=== PATIENT | female | born 1975 | race Caucasian/White ===

== ENCOUNTER 2017-03-01 19:52 | Emergency (ER) | payer OTHER ==
[2017-03-01] MEDS ORDERED: SODIUM CHLORIDE 0.9% 1,000 ML IV ONE ×2 (21:05→21:10)
[2017-03-01] MEDS ORDERED: ONDANSETRON 4 MG/2 ML VIAL ONE (21:05)
[2017-03-01] MEDS ORDERED: ONDANSETRON 4 MG/2 ML VIAL IVP STA (21:10)
[2017-03-01] MEDS ORDERED: ONDANSETRON ODT 4 MG Prepack 2 TL ONE (22:24)
== END 2017-03-01 23:01 | disposition home or self-care (01) ==
DX: E86.0 Dehydration (principal); R11.2 Nausea with vomiting, unspecified; R19.7 Diarrhea, unspecified; R73.9 Hyperglycemia, unspecified; Z85.038 Personal history of other malignant neoplasm of large intestine

== ENCOUNTER 2017-03-03 09:10 | Inpatient (IN) | payer OTHER ==
[2017-03-03] MEDS ORDERED: ONDANSETRON 4 MG/2 ML VIAL IVP STA (09:16)
[2017-03-03] MEDS ORDERED: SODIUM CHLORIDE 0.9% 2,000 ML IV ONE (09:16)
[2017-03-03] MEDS ORDERED: ONDANSETRON 4 MG/2 ML VIAL ONE (09:53)
[2017-03-03] MEDS ORDERED: diazePAM INJ 5 MG/ML SYRINGE IVP STA (10:31)
[2017-03-03] MEDS ORDERED: HYDROmorphone 1 MG/ML SYRINGE IVP STA (10:31)
[2017-03-03] MEDS ORDERED: diazePAM INJ 5 MG/ML SYRINGE ONE (10:49)
[2017-03-03] MEDS ORDERED: HYDROmorphone 1 MG/ML SYRINGE ONE (10:49)
[2017-03-03] MEDS ORDERED: SODIUM CHLORIDE FLUSH 0.9% 10 ML SYRINGE IVP PRN (11:43)
[2017-03-03] MEDS ORDERED: oxyCODONE 5 MG TABLET PO PRN (11:43)
[2017-03-03] MEDS ORDERED: PROCHLORPERAZINE 10 MG/2 ML VIAL IVP PRN (11:43)
[2017-03-03] MEDS ORDERED: ONDANSETRON ODT 4 MG TABLET TL PRN (11:43)
[2017-03-03] MEDS ORDERED: ACETAMINOPHEN 325 MG TABLET PO PRN (11:43)
[2017-03-03] MEDS: SODIUM CHLORIDE 0.9% 1,000 ML IV SCH ×3 (12:45→23:32)
[2017-03-03] MEDS: SODIUM CHLORIDE FLUSH 0.9% 10 ML SYRINGE IVP SCH ×2 (12:45→14:00)
[2017-03-03] MEDS: PANTOPRAZOLE 40 MG VIAL IVP SCH ×2 (13:22→14:00)
[2017-03-03] MEDS ORDERED: A & D OINTMENT 5 GM PACKET TOP PRN (13:34)
[2017-03-03] MEDS: ONDANSETRON 4 MG/2 ML VIAL IVP PRN (14:58)
[2017-03-04] MEDS: SODIUM CHLORIDE 0.9% 1,000 ML IV SCH ×3 (04:25→19:47)
[2017-03-04] MEDS: SODIUM CHLORIDE FLUSH 0.9% 10 ML SYRINGE IVP SCH ×3 (06:36→19:49)
[2017-03-04] MEDS: PANTOPRAZOLE 40 MG VIAL IVP SCH (06:36)
[2017-03-04] MEDS ORDERED: POLYETHYLENE GLYCOL 3350 17 GM PACKET PO SCH (09:00)
[2017-03-04] MEDS ORDERED: FLU VACCINE QS 2016-17 60 MCG/0.5 ML SYRINGE IM ONE (09:00)
[2017-03-04] MEDS: ONDANSETRON 4 MG/2 ML VIAL IVP PRN (09:39)
[2017-03-04] MEDS: DIPHENOX/ATROPINE 2.5/0.025 MG TABLET PO PRN ×2 (15:48→19:46)
[2017-03-05] MEDS: ONDANSETRON 4 MG/2 ML VIAL IVP PRN (00:33)
[2017-03-05] MEDS: PANTOPRAZOLE 40 MG VIAL IVP SCH (06:28)
[2017-03-05] MEDS: SODIUM CHLORIDE 0.9% 1,000 ML IV SCH (06:28)
[2017-03-05] MEDS: SODIUM CHLORIDE FLUSH 0.9% 10 ML SYRINGE IVP SCH (06:29)
[2017-03-05] MEDS: DIPHENOX/ATROPINE 2.5/0.025 MG TABLET PO PRN (06:33)
== END 2017-03-05 10:29 | disposition home or self-care (01) | DRG 683 ==
DX: N17.9 Acute kidney failure, unspecified (principal); E87.2 Acidosis; E86.0 Dehydration; A08.4 Viral intestinal infection, unspecified; K52.9 Noninfective gastroenteritis and colitis, unspecified; Z90.49 Acquired absence of other specified parts of digestive tract; F41.9 Anxiety disorder, unspecified; G43.909 Migraine, unspecified, not intractable, without status migrainosus; R16.0 Hepatomegaly, not elsewhere classified; Z86.010 Personal history of colon polyps; Z86.03 Personal history of neoplasm of uncertain behavior; F17.210 Nicotine dependence, cigarettes, uncomplicated

== ENCOUNTER 2017-08-11 07:51 | Outpatient (CLI) | payer OTHER ==
[2017-08-11 13:22] LABS: BASOPHILS % (AUTO) 0.5 %; EOSINOPHILS # (AUTO) 0.1 10^3/uL (0.0-0.7); EOSINOPHILS % (AUTO) 1.8 %; HCT - HEMATOCRIT 36.7 % (37.0-47.0); HGB - HEMOGLOBIN 12.5 g/dL (12.0-16.0); LYMPHOCYTES # (AUTO) 1.1 10^3/uL (1.5-3.5); LYMPHOCYTES % (AUTO) 22.1 %; MEAN CORPUSCULAR HEMOGLOBIN 29.6 pg (27.0-31.0); MEAN CORPUSCULAR VOLUME 87.1 fL (81.0-99.0); MEAN PLATELET VOLUME 7.8 fL (7.9-10.8); MONOCYTES # (AUTO) 0.3 10^3/uL (0.0-1.0); MONOCYTES % (AUTO) 6.9 %; NEUTROPHILS # (AUTO) 3.5 10^3/uL (1.5-6.6); NEUTROPHILS % (AUTO) 68.7 %; RED BLOOD COUNT 4.22 10^6/uL (4.20-5.40); RED CELL DISTRIBUTION WIDTH 13.9 % (12.0-15.0); UNCORRECTED WHITE BLOOD COUNT 5.1 x10^3/uL; WHITE BLOOD COUNT 5.1 x10^3/uL (4.8-10.8)
[2017-08-11 14:00] LABS: ALBUMIN/GLOBULIN RATIO 1.3 (1.0-2.2); BILIRUBIN,TOTAL 0.7 mg/dL (0.2-1.0); BUN - BLOOD UREA NITROGEN 18 mg/dL (6-20); CALCIUM 9.6 mg/dL (8.5-10.3); CARBON DIOXIDE - CO2 28 mmol/L (21-32); CHLORIDE 101 mmol/L (101-111); CREATININE 0.6 mg/dL (0.4-1.0); GFR - MDRD 111 (>89); GLUCOSE 97 mg/dL (70-100); POTASSIUM 4.3 mmol/L (3.5-5.0); SODIUM 137 mmol/L (135-145); TOTAL PROTEIN 7.7 g/dL (6.7-8.2)
== END 2017-08-11 07:52 | disposition home or self-care (01) ==
LOC: LAB.WCP 07:51
PROVIDERS: ATTEND Physician Assistant Medical
DX: Z00.00 Encounter for general adult medical examination without abnormal findings (principal)
CPT/HCPCS: 36415; 80053; 84443; 85025

== ENCOUNTER 2017-08-18 08:35 | Outpatient (CLI) | payer OTHER ==
--- NOTE | 2017-08-18 17:26 | Ultrasound Report ---
PELVIC ULTRASOUND: 08/18/2017 HISTORY: Pelvic pain. History of colon cancer. Patient has familial adenomatous polyposis. Last menstrual period 07/20/2017. TECHNIQUE: Real-time scanning by the dietetics teacher with saved static images reviewed. Transabdominal approach for global evaluation with transvaginal scanning for detailed assessment of the uterus and ovaries. FINDINGS: UTERUS: 8.8 x 5 x 6.2 cm, volume 143 mL. Anteverted configuration, normal echotexture. ENDOMETRIUM: Echo thickness 10 mm, within normal limits. RIGHT OVARY: 3.1 x 2.4 x 1.8 cm, volume 7 mL, normal echotexture and blood flow. LEFT OVARY: 7.7 x 4.6 x 4.5 cm, volume 83.4 mL, normal blood flow. Two cysts are present, 3.6 x 3.2 x 3.8 cm and 2.6 x 2.2 x 2.4 cm. No free fluid present. IMPRESSION: NEGATIVE PELVIC ULTRASOUND. JOB #: [id number] EXT JOB #: [id number] [facility]
--- NOTE | 2017-08-18 17:27 | Ultrasound Report ---
THYROID ULTRASOUND: 08/18/2017 HISTORY: Thyromegaly. Left submandibular tenderness. TECHNIQUE: Real-time scanning by the ware finisher with saved static images reviewed. COMPARISON: None. FINDINGS: RIGHT LOBE: 4.4 x 1.1 x 1.3 cm, volume 3.3 mL. Normal echotexture and vascularity. LEFT LOBE: 4.2 x 0.9 x 1.6 cm, volume 3.2 mL. Normal echotexture and vascularity. THYROID ISTHMUS: 1 mm, unremarkable. In the area of clinical tenderness in the left submandibular region, two small normal-appearing lymph nodes are seen, 1.3 x 0.6 x 1.2 cm and 1.5 x 0.4 x 1.2 cm. IMPRESSION: NEGATIVE THYROID ULTRASOUND. TWO NORMAL-APPEARING LYMPH NODES ARE SEEN IN THE AREA OF CLINICAL TENDERNESS (LEFT SUBMANDIBULAR REGION). JOB #: [id number] EXT JOB #: [id number] [facility]
== END 2017-08-18 08:36 | disposition home or self-care (01) ==
LOC: DI 08:35
PROVIDERS: ATTEND Physician Assistant Medical
DX: R10.2 Pelvic and perineal pain (principal); E01.0 Iodine-deficiency related diffuse (endemic) goiter
CPT/HCPCS: 76536; 76830; 76856

== ENCOUNTER 2021-04-26 03:03 | Observation (INO) | payer OTHER ==
--- NOTE | 2021-04-26 04:27 | ED Physician Documentation ---
PD HPI ABD PAIN - Stated complaint Stated Complaint: ABD PX/VOMITING - Chief complaint Chief Complaint: Abd Pain - History obtained from History obtained from: Patient - History of Present Illness Timing - onset: How many hours ago (12) Timing - details: Gradual onset, Waxing and waning Pain level now: 8 Quality: Pain Location: All over / everywhere Radiation: Other (does not radiate) Improved by: Other (no ameliorating factors) Worsened by: Other (no exacerbating factors) Associated symptoms: Nausea, Vomiting, Constipation. No: Fever, Diarrhea Similar symptoms before: Diagnosis (similar symptoms associated with previous SBO) Recently seen: Not recently seen - Additional information Additional information: c/o 12 hours of gradual onset, waxing and waning generalized abdominal cramping pain with episodic nausea, vomiting. She feels this is similar to when she last had a SBO, approximately 2006. She has familial adenomatous polyposis and thus had a total colectomy approximatey 20 years ago. She says she has chronic diarrhea and thus has 5-6 bowel movements per day; however, she has not had a BM since yesterday morning. Review of Systems Constitutional: reports: Reviewed and negative Eyes: reports: Reviewed and negative Ears: reports: Reviewed and negative Nose: reports: Reviewed and negative Throat: reports: Reviewed and negative Cardiac: reports: Reviewed and negative Respiratory: reports: Reviewed and negative GI: reports: Abdominal Pain, Nausea, Vomiting, Constipation. denies: Diarrhea, Hematemesis, Bloody / black stool : denies: Dysuria, Frequency Skin: reports: Reviewed and negative Musculoskeletal: reports: Reviewed and negative Neurologic: reports: Reviewed and negative PD PAST MEDICAL HISTORY - Past Medical History Cardiovascular: None Respiratory: None Endocrine/Autoimmune: None GI: Other COUNSELLING PSYCHOLOGIST: None : None HEENT: None Psych: None Musculoskeletal: None Derm: None - Past Surgical History Past Surgical History: Yes General: Bowel surgery, Other - Present Medications Home Medications: Ambulatory Orders Medication Instructions Recorded Confirmed Diphenoxylate/Atropine [Lomotil] 1 each PO PRN PRN 04/26/21 04/26/21 - Allergies Allergies/Adverse Reactions: Allergies Allergy/AdvReac Type Severity Reaction Status Date / Time No Known Drug Allergies Allergy Verified 03/03/17 09:22 - Social History Does the pt smoke?: No Smoking Status: Former smoker Does the pt drink ETOH?: Yes Does the pt have substance abuse?: No - Immunizations Immunizations are current?: Yes - POLST Patient has POLST: No PD ED PE NORMAL - Vitals Vital signs reviewed: Yes - General General: Alert and oriented X 3, Well developed/nourished, Other (appears to be in waxing and waning painful distress during H+P) - HEENT HEENT: Moist mucous membranes - Neck Neck: Supple, no meningeal sign - Cardiac Cardiac: RRR, No murmur - Respiratory Respiratory: No respiratory distress, Clear bilaterally - Abdomen Abdomen: Normal bowel sounds, Soft, Non distended, Other (mild generalized tenderness without rebound or guarding) - Back Back: No CVA TTP - Derm Derm: Normal color, Warm and dry - Extremities Extremities: No edema - Neuro Neuro: Alert and oriented X 3 Results - Vitals Vitals: Vital Signs - 24 hr 04/26/21 04/26/21 04/26/21 03:13 05:26 07:00 Temperature 36.2 C L 36.9 C Heart Rate 71 64 73 Respiratory 24 16 Rate Blood Pressure 118/69 114/76 O2 Saturation 99 95 100 04/26/21 04/26/21 07:04 09:00 Temperature 36.9 C Heart Rate 98 Respiratory 19 Rate Blood Pressure 136/99 H O2 Saturation 98 Oxygen O2 Source Room air - Labs Labs: Laboratory Tests 04/26/21 04/26/21 04/26/21 04:49 04:49 04:49 WBC 10.3 RBC 4.35 Hgb 12.8 Hct 37.9 MCV 87.1 MCH 29.4 MCHC 33.8 RDW 13.1 Plt Count 348 MPV 8.9 Neut # (Auto) 9.1 H Lymph # (Auto) 0.7 L [place] # (Auto) 0.4 Eos # (Auto) 0.0 Baso # (Auto) 0.0 Absolute Nucleated RBC 0.00 Nucleated RBC % 0.0 Sodium 138 Potassium 3.9 Chloride 104 Carbon Dioxide 21 Anion Gap 13.0 BUN 21 H Creatinine 0.8 Estimated GFR (MDRD) 78 L Glucose 128 H Calcium 9.7 Total Bilirubin 0.7 AST 23 ALT 20 Alkaline Phosphatase 35 L Total Protein 7.9 Albumin 4.6 Globulin 3.3 Albumin/Globulin Ratio 1.4 Lipase 36 Urine Color YELLOW Urine Clarity CLEAR Urine pH 6.5 Ur Specific Hammond 1.020 Urine Protein TRACE Urine Glucose (UA) NEGATIVE Urine Ketones TRACE Urine Occult Blood NEGATIVE Urine Nitrite NEGATIVE Urine Bilirubin NEGATIVE Urine Urobilinogen 0.2 (NORMAL) Ur Leukocyte Esterase NEGATIVE Ur Microscopic Review NOT INDICATED Urine Culture Comments NOT INDICATED Nasal Adenovirus (PCR) Nasal B. parapertussis DNA (PCR) Nasal Coronavir 229E PCR Nasal Coronavir HKU1 PCR Nasal Coronavir NL63 PCR Nasal Coronavir OC43 PCR Nasal Enterovir/Rhinovir PCR Nasal Influenza B PCR Nasal Influenza A PCR Nasal Parainfluen 1 PCR Nasal Parainfluen 2 PCR Nasal Parainfluen 3 PCR Nasal Parainfluen 4 PCR Nasal RSV (PCR) Nasal B.pertussis DNA PCR Nasal C.pneumoniae (PCR) Saturnino Human Metapneumo PCR Nasal M.pneumoniae (PCR) Nasal SARS-CoV-2 (PCR) 04/26/21 09:05 WBC RBC Hgb Hct MCV MCH MCHC RDW Plt Count MPV Neut # (Auto) Lymph # (Auto) Red [place]ow # (Auto) Eos # (Auto) Baso # (Auto) Absolute Nucleated RBC Nucleated RBC % Sodium Potassium Chloride Carbon Dioxide Anion Gap BUN Creatinine Estimated GFR (MDRD) Glucose Calcium Total Bilirubin AST ALT Alkaline Phosphatase Total Protein Albumin Globulin Albumin/Globulin Ratio Lipase Urine Color Urine Clarity Urine pH Ur Specific Hammond Urine Protein Urine Glucose (UA) Urine Ketones Urine Occult Blood Urine Nitrite Urine Bilirubin Urine Urobilinogen Ur Leukocyte Esterase Ur Microscopic Review Urine Culture Comments Nasal Adenovirus (PCR) NOT DETECTED Nasal B. parapertussis DNA (PCR) NOT DETECTED Nasal Coronavir 229E PCR NOT DETECTED Nasal Coronavir HKU1 PCR NOT DETECTED Nasal Coronavir NL63 PCR NOT DETECTED Nasal Coronavir OC43 PCR NOT DETECTED Nasal Enterovir/Rhinovir PCR NOT DETECTED Nasal Influenza B PCR NOT DETECTED Nasal Influenza A PCR NOT DETECTED Nasal Parainfluen 1 PCR NOT DETECTED Nasal Parainfluen 2 PCR NOT DETECTED Nasal Parainfluen 3 PCR NOT DETECTED Nasal Parainfluen 4 PCR NOT DETECTED Nasal RSV (PCR) NOT DETECTED Nasal B.pertussis DNA PCR NOT DETECTED Nasal C.pneumoniae (PCR) NOT DETECTED Saturnino Human Metapneumo PCR NOT DETECTED Nasal M.pneumoniae (PCR) NOT DETECTED Nasal SARS-CoV-2 (PCR) NOT DETECTED - Rads (name of study) CT A/P with IV, PO contrast Radiology: Prelim report reviewed, See rad report, Other (was only able to tolerate small amount of the PO contrast) PD MEDICAL DECISION MAKING - ED course Complexity details: reviewed old records, reviewed results, re-evaluated patient, considered differential, d/w patient ED course: SBO on CT A/P. She had improvement in symptoms with IV zofran and IV dilaudid, repeat doses of the dilaudid. At end of my shift care of patient turned over to Dr. Moses, waiting to discuss the case with on-call surgery Departure - Departure Disposition: ED Place in Observation Clinical Impression: Small bowel obstruction due to adhesions Abdominal pain Qualifiers: Abdominal location: generalized Qualified Code(s): R10.84 - Generalized abdominal pain Nausea and vomiting Qualifiers: Vomiting type: unspecified Vomiting Intractability: unspecified Qualified Code(s): R11.2 - Nausea with vomiting, unspecified Condition: Stable
[2021-04-26] MEDS ORDERED: SODIUM CHLORIDE 0.9% 1,000 ML IV STA ×2 (04:28→07:40)
[2021-04-26 04:53] LABS: BASOPHILS % (AUTO) 0.2 %; EOSINOPHILS % (AUTO) 0.4 %; HCT - HEMATOCRIT 37.9 % (37.0-47.0); HGB - HEMOGLOBIN 12.8 g/dL (12.0-16.0); LYMPHOCYTES # (AUTO) 0.7 10^3/uL (1.5-3.5); LYMPHOCYTES % (AUTO) 6.8 %; MEAN CORPUSCULAR HEMOGLOBIN 29.4 pg (27.0-31.0); MEAN CORPUSCULAR HGB CONC 33.8 g/dL (32.0-36.0); MEAN CORPUSCULAR VOLUME 87.1 fL (81.0-99.0); MEAN PLATELET VOLUME 8.9 fL (7.9-10.8); MONOCYTES # (AUTO) 0.4 10^3/uL (0.0-1.0); MONOCYTES % (AUTO) 4.1 %; NEUTROPHILS # (AUTO) 9.1 10^3/uL (1.5-6.6); NEUTROPHILS % (AUTO) 88.1 %; PLT - PLATELET COUNT 348 10^3/uL (130-450); RED BLOOD COUNT 4.35 10^6/uL (4.20-5.40); RED CELL DISTRIBUTION WIDTH 13.1 % (12.0-15.0); WHITE BLOOD COUNT 10.3 x10^3/uL (4.8-10.8)
[2021-04-26 04:54] LABS: BILIRUBIN,URINE NEGATIVE (NEGATIVE); GLUCOSE, URINE (UA) NEGATIVE (NEGATIVE); KETONES,URINE (UA) TRACE mg/dL (NEGATIVE); LEUKOCYTE ESTERASE, URINE NEGATIVE (NEGATIVE); NITRITE,URINE NEGATIVE (NEGATIVE); OCCULT BLOOD,URINE NEGATIVE (NEGATIVE); PH,URINE 6.5 PH (5.0-7.5); PROTEIN,URINE TRACE mg/dL (NEGATIVE); UROBILINOGEN,URINE 0.2 (NORMAL) E.U./dL (NORMAL)
[2021-04-26 04:55] LABS: CLARITY,URINE CLEAR (CLEAR)
[2021-04-26] MEDS ORDERED: ONDANSETRON 4 MG/2 ML VIAL IVP STA ×2 (04:57→09:30)
[2021-04-26] MEDS ORDERED: HYDROmorphone 1 MG/ML CARPUJECT IVP STA ×4 (04:57→09:30)
[2021-04-26 05:08] LABS: ALBUMIN 4.6 g/dL (3.2-5.5); ALBUMIN/GLOBULIN RATIO 1.4 (1.0-2.2); BILIRUBIN,TOTAL 0.7 mg/dL (0.2-1.0); CALCIUM 9.7 mg/dL (8.5-10.3); CREATININE 0.8 mg/dL (0.4-1.0); POTASSIUM 3.9 mmol/L (3.5-5.0); TOTAL PROTEIN 7.9 g/dL (6.7-8.2)
[2021-04-26] MEDS ORDERED: IOPAMIDOL-300 50 ML VIAL ONE (05:13)
[2021-04-26] MEDS ORDERED: IOVERSOL 320 100 ML VIAL IVP ONE (06:34)
[2021-04-26] MEDS: IOPAMIDOL-300 50 ML VIAL PO ONE (07:08)
[2021-04-26] MEDS: IOVERSOL 320 100 ML VIAL IVP ONE (07:08)
--- NOTE | 2021-04-26 07:45 | ED Physician Documentation ---
ED Addendum - Addendum Addendum: Patient was awaiting CT scan on time of shift change. I checked with her and she states she was comfortable enough at this point did not need any further pain or nausea medicines having just received some prior to the CT. The CT report is showing a small bowel obstruction with transition point. I will talk with Dr. Contreras on for surgery and then the hospitalist and presumed admission for further treatment. Disposition: Placement in the hospital for further care Diagnosis: 1. acute small bowel obstruction 2. General abdominal pain and distention 3. nausea and vomiting 04/26/21 07:43
--- NOTE | 2021-04-26 07:56 | CT Report ---
PROCEDURE: Abdomen/Pelvis W INDICATIONS: abd. pain, h/o SBO CONTRAST: IV CONTRAST: Optiray 320 ml: 100 PO CONTRAST: Isovue 300 ml50 TECHNIQUE: After the administration of oral and IV contrast, 5 mm thick sections acquired from the diaphragms to the symphysis. 5 mm thick coronal and sagittal reformats were acquired. For radiation dose reducti on, the following was used: automated exposure control, adjustment of mA and/or kV according to anisha ent size. COMPARISON: None. FINDINGS: Image quality: Excellent. ABDOMEN: Lung bases: Lung bases are clear. Heart size is normal. Solid organs: Liver and spleen are normal in size and enhancement. Gallbladder wall does not appear thickened. Biliary system is non dilated. Pancreas enhances normally. The left adrenal gland gray s been removed. No right adrenal nodules. Kidneys demonstrate normal size and enhancement, without h ydronephrosis. Peritoneum and bowel: Gastroesophageal junction postoperative changes are seen. Postoperative staple lines be seen involving the rectum as well as right lower quadrant small bowel. Dilated loops of small bowel are seen proximally, which measure up to 3.8 cm. The distal small bowel loops are decompressed. The transition point is seen within the lower mid abdomen posteriorly, just t o the right of the midline, as on series 3 image 51. Trace ascites is seen. No free air is seen. No a bscess collection is seen. Nodes and vessels: No retroperitoneal or mesenteric adenopathy by size criteria. Borderline prominen t mesenteric lymph nodes are seen. Aorta and inferior vena cava are normal in size. Miscellaneous: No ventral hernias. PELVIS: Genitourinary: Bladder wall thickness is normal. The uterus is within normal limits. There is a 3.5 cm left ovarian cyst seen, with an internal density of 37 Hounsfield units. Miscellaneous: No inguinal hernias or adenopathy. Bones: No suspicious bony lesions. No vertebral body compression fractures. There is focal L5-S1 de generative change. Milder degenerative changes are seen elsewhere. IMPRESSION: Small bowel obstruction, with a transition point seen within the lower mid abdomen, just to the right of the midline. Trace ascites. Prior bowel surgery, with colectomy and distal anastomosis. Borderline prominent mesenteric lymph nodes. 3.5 cm left ovarian hemorrhagic cyst. If clinically appropriate, please consider a short-term follow -up ultrasound in 6 weeks to ensure resolution/improvement. Incidental note is made of: Gastroesophageal junction postoperative change Left adrenal gland removal Focal L5-S1 degenerative change Note: No significant discrepancy from the preliminary report. Reviewed by: Ceferino Capps MD on 04/26/2021 6:54 AM [facility] Approved by: Ceferino Capps MD on 04/26/2021 6:54 AM [facility] Station ID: [id number]
[2021-04-26] MEDS ORDERED: diphenhydrAMINE ELIXIR 25 MG/10 ML UDC PO STA (08:39)
[2021-04-26] MEDS ORDERED: LIDOCAINE VISCOUS 2% 15 ML UDC MM STA (08:39)
[2021-04-26] MEDS ORDERED: ACETAMINOPHEN 1,000 MG/100 ML 100 ML IV PRN (09:57)
[2021-04-26 10:32] LABS: B. PARAPERTUSSIS- RESP PCR PAN NOT DETECTED; B. PERTUSSIS- RESP PCR PANEL NOT DETECTED; C. PNEUMONIAE- RESP PCR PANEL NOT DETECTED; CORONAVIRUS 229E-RESP PCR NOT DETECTED; CORONAVIRUS HKU1-RESP PCR NOT DETECTED; CORONAVIRUS NL63-RESP PCR NOT DETECTED; CORONAVIRUS OC43-RESP PCR NOT DETECTED; HUMAN METAPNEUMOVIRUS NOT DETECTED; INFLUENZA A- RESP PCR PANEL NOT DETECTED; INFLUENZA B - RESP PCR PANEL NOT DETECTED; M. PNEUMONIAE- RESP PCR PANEL NOT DETECTED; PARAINFLUENZA VIRUS 1 NOT DETECTED; PARAINFLUENZA VIRUS 2 NOT DETECTED; PARAINFLUENZA VIRUS 3 NOT DETECTED; PARAINFLUENZA VIRUS 4 NOT DETECTED; RHINOVIRUS/ENTEROVIRUS NOT DETECTED; RSV- RESP PCR PANEL NOT DETECTED; SARS-CoV-2 -RESP PCR PANEL NOT DETECTED
--- OUTSIDE RECORDS SUMMARY | 2021-04-26 10:36 | EXTERNAL MEDICAL SUMMARY RPT | Continuity of Care Document ---
:1975 Demographics Phone Unavailable Preferred Language Unknown Marital Status Unknown Evangelical Affiliation Unknown Race Unknown Ethnic Group Unknown Author Organization [facility] Address [address] [phone] Phone Allergies Encounters Medications Problems Results
--- NOTE | 2021-04-26 12:24 | PHARMACY PROGRESS NOTE ---
- Best Possible Medication History Admit Date and Time: 04/26/21 0957 Processed by: Nursing Medication History completed: Yes Patient Interview: Pt interview ONLY source As the person ultimately responsible for medication therapy, providers are able to order a medication from an existing home medication list in [facility] via the "Reconcile Routine" prior to Confirmation of that medication by administrative support manager. Such practice is discouraged except when the physician, in their clinical judgment, deems that a medical need exists for a medication without regard to previous use.
[2021-04-26] MEDS: METOCLOPRAMIDE 10 MG/2 ML VIAL IVP SCH ×2 (12:31→18:10)
[2021-04-26] MEDS: methocarbamoL 500 MG TABLET PO SCH ×2 (12:31→18:15)
[2021-04-26] MEDS: D5NS W/20 MEQ KCL 1,000 ML IV SCH ×2 (12:31→20:45)
[2021-04-26] MEDS: ONDANSETRON 4 MG/2 ML VIAL IVP PRN ×2 (15:09→20:46)
[2021-04-26] MEDS: HYDROmorphone 0.5 MG/0.5 ML SYRINGE IVP PRN ×2 (15:45→22:29)
[2021-04-26] MEDS: SODIUM CHLORIDE FLUSH 0.9% 10 ML SYRINGE IVP SCH (15:45)
--- NOTE | 2021-04-26 16:02 | XRAY Report ---
PROCEDURE: Chest for Line Placement INDICATIONS: NG Tube placement TECHNIQUE: One view of the chest was acquired. COMPARISON: Correlation is made with abdomen and pelvis CT, 04/26/2021. Correlation is made with prio r abdominal plain film, 03/03/2017 FINDINGS: Surgical changes and devices: A gastric tube is seen, with the tip overlying the distal stomach. Lef t upper quadrant postoperative clips are seen. A right pelvic clip is also seen. Incidental note is m fara of body ornamentation artifact. Lungs and pleura: No pleural effusions or pneumothorax. Lungs are clear. Mediastinum: Mediastinal contours appear normal. Heart size is normal. Bones and chest wall: No suspicious bony lesions. Overlying soft tissues appear unremarkable. IMPRESSION: The gastric tube tip is seen overlying the distal stomach. Abdominal postoperative changes. Reviewed by: Ceferino Capps MD on 04/26/2021 3:01 PM [facility] Approved by: Ceferino Capps MD on 04/26/2021 3:01 PM [facility] Station ID: [id number]
[2021-04-26] MEDS: SODIUM CHLORIDE FLUSH 0.9% 10 ML SYRINGE IVP PRN ×2 (20:46→22:29)
[2021-04-27] MEDS: METOCLOPRAMIDE 10 MG/2 ML VIAL IVP SCH ×5 (00:15→23:43)
[2021-04-27] MEDS: SODIUM CHLORIDE FLUSH 0.9% 10 ML SYRINGE IVP SCH ×4 (00:15→23:43)
[2021-04-27] MEDS: methocarbamoL 500 MG TABLET PO SCH ×5 (00:15→23:43)
[2021-04-27] MEDS: HYDROmorphone 0.5 MG/0.5 ML SYRINGE IVP PRN ×6 (01:57→16:55)
[2021-04-27] MEDS: D5NS W/20 MEQ KCL 1,000 ML IV SCH ×2 (04:57→12:58)
[2021-04-27] MEDS: PANTOPRAZOLE 40 MG VIAL IVP SCH (06:26)
[2021-04-27] MEDS: ENOXAPARIN 40 MG/0.4 ML SYRINGE SUBQ SCH (08:20)
[2021-04-27] MEDS: POTASSIUM CHLORIDE INJ 20 MEQ in DEXTROSE 5%-0.9% NACL 1,000 ML IV SCH ×2 (12:57→21:34)
--- NOTE | 2021-04-27 13:32 | SURGERY HX AND PHYSICAL(T) ---
Surgical History & Physical - Chief Complaint/HPI Chief Complaint: Bowel Obstruction History of Present Illness: 45-year-old female presenting for bowel obstruction. History of total abdominal colectomy for FAP. Patient underwent restorative ileal pouch anal anastomosis with proximal diverting loop ileostomy. Her operative intervention was performed open/laparotomy. Ultimately reports 5- 6 bowel movements daily since ileostomy takedown close near 2 decades ago. Patient has last have the rectal remnant evaluated in 2019 with no complication. Within the last decade patient had single episode of bowel obstruction requiring laparotomy. Patient other than acute presentation has had no change in bowel function, denies bleeding per rectum, and also denies reflux associated symptoms. Patient does not use tobacco. Patient has a history of alcohol use but denies any associated abuse. Respiratory/Bipap. No history of heart attack or stroke. Patient takes no systemic anticoagulation. Endoscopic history includes 2019 proctoscopy sigmoidoscopy. - PMH/PSH/Social Hx Does the pt have a hx of MRSA?: No Eyes, Ears, Nose, Throat: None Cardiovascular: None Respiratory: None Skin: None Endocrine/Autoimmune: None Gastrointestinal: Other GYNECOLOGICAL ASSISTANT: None Urinary: None Musculoskeletal: None Blood Disorders: None Psychiatric: None General: Bowel surgery, Other Smoking Status: Former smoker Does the pt drink ETOH?: Yes Frequency: Occasional Does the pt have substance abuse?: No - Home Meds and Allergies Home Medications: Diphenoxylate/Atropine [Lomotil] 1 each PO PRN PRN 04/26/21 Allergies/Adverse Reactions: Allergies Allergy/AdvReac Type Severity Reaction Status Date / Time No Known Drug Allergies Allergy Verified 03/03/17 09:22 - Review of Systems Constitutional: Malaise Gastrointestinal: Nausea, Vomiting, Abdominal pain - Vital Signs Heart Rate: 67 Blood Pressure: 117/85 Temperature: 36.4 C Respiratory Rate: 18 O2 Saturation: 99 Weight (kg): 61.235 kg Height: 1.63 m - Physical Exam Comments/Other: General Appearance: positive: No acute distress Eyes Bilateral: positive: Normal inspection ENT: positive: ENT inspection nml Neck: positive: Nml inspection Respiratory: positive: Chest non-tender, No respiratory distress, Breath sounds nml. negative: Wheezes, Rales, Rhonchi Cardiovascular: positive: Regular rate & rhythm Extremities: positive: Non-tender, Full ROM, Nml appearance Neurologic/Psychiatric: positive: Oriented x3, CN's nml (2-12) Abdomen specified: 1. NG tube repositioned with ultimate return after manipulation for another 500 to 600 cc of feculent aspirate 2. Abdomen soft no significant distention. No rebound or guarding. 3. No palpable hernias well-healed midline scars - Patient Review Patient Review: Problems were reviewed with the patient during this visit. Medications were reviewed with the patient during this visit. Allergies were reviewed this patient during this visit. Pertinent Tests Reviewed: All pertitent test for this patient were reviewed. - Assessment & Plan Assessment and Plan: 45 with history of total abdominal colectomy/laparotomy with restorative ileoanal J-pouch and temporary diverting loop ileostomy, secondary to FAP. She ultimately had ileostomy takedown. Within the last decade had single episode of obstruction requiring laparotomy. Presents with moderate to high-grade small bowel obstruction with associated obstipation. No peritoneal signs at this time. Plan as follows: 1. bowel rest, nasogastric decompression, IV fluid resuscitation. 2. Serial abdominal exams, plain film imaging, possible repeat imaging with CT and contrast challenge. 3. May need operative intervention if fails conservative management. Will follow closely. 4. Electrolytes normal at this time we will continue to monitor them with daily lab draws. CT abdomen pelvis impression: 1. Small bowel obstruction with a transition point seen within the lower mid abdomen, just to the right of midline. 2. Trace distal ascites 3. Prior bowel surgery with colectomy and distal anastomosis. 4. Borderline prominent mesenteric lymph nodes. 5. 3.5 cm left ovarian hemorrhagic cyst. If clinically appropriate please consider short-term follow-up ultrasound in 6 weeks to ensure resolution improvement.
[2021-04-27] MEDS ORDERED: IOPAMIDOL-300 50 ML VIAL ONE (14:03)
[2021-04-27] MEDS ORDERED: IOVERSOL 320 100 ML VIAL IVP ONE (14:03)
[2021-04-27] MEDS: ONDANSETRON 4 MG/2 ML VIAL IVP PRN (14:21)
[2021-04-27 14:39] LABS: BASOPHILS % (AUTO) 0.6 %; EOSINOPHILS # (AUTO) 0.1 10^3/uL (0.0-0.7); EOSINOPHILS % (AUTO) 3.8 %; HCT - HEMATOCRIT 33.2 % (37.0-47.0); HGB - HEMOGLOBIN 10.7 g/dL (12.0-16.0); LYMPHOCYTES # (AUTO) 0.8 10^3/uL (1.5-3.5); LYMPHOCYTES % (AUTO) 22.5 %; MEAN CORPUSCULAR HEMOGLOBIN 29.8 pg (27.0-31.0); MEAN CORPUSCULAR HGB CONC 32.2 g/dL (32.0-36.0); MEAN CORPUSCULAR VOLUME 92.5 fL (81.0-99.0); MONOCYTES # (AUTO) 0.5 10^3/uL (0.0-1.0); MONOCYTES % (AUTO) 14.9 %; NEUTROPHILS % (AUTO) 57.9 %; PLT - PLATELET COUNT 263 10^3/uL (130-450); RED BLOOD COUNT 3.59 10^6/uL (4.20-5.40); RED CELL DISTRIBUTION WIDTH 13.3 % (12.0-15.0); WHITE BLOOD COUNT 3.4 x10^3/uL (4.8-10.8)
[2021-04-27 14:52] LABS: ALBUMIN 3.4 g/dL (3.2-5.5); ALBUMIN/GLOBULIN RATIO 1.2 (1.0-2.2); BILIRUBIN,TOTAL 0.5 mg/dL (0.2-1.0); CALCIUM 8.5 mg/dL (8.5-10.3); CREATININE 0.7 mg/dL (0.4-1.0); PHOSPHORUS 2.1 mg/dL (2.5-4.6); POTASSIUM 4.2 mmol/L (3.5-5.0); TOTAL PROTEIN 6.3 g/dL (6.7-8.2)
[2021-04-27] MEDS: IOVERSOL 320 100 ML VIAL IVP ONE (15:52)
[2021-04-27] MEDS: IOPAMIDOL-300 50 ML VIAL PO ONE (15:53)
--- NOTE | 2021-04-27 18:08 | CT Report ---
PROCEDURE: Abdomen/Pelvis W INDICATIONS: IV PO and per Rectal Contrast CONTRAST: IV CONTRAST: Optiray 320 ml: 100 PO CONTRAST: Isovue 300 ml50 TECHNIQUE: After the administration of IV, oral, and rectal contrast, 5 mm thick sections acquired from the diap hragms to the symphysis. 5 mm thick coronal and sagittal reformats were acquired. For radiation dos e reduction, the following was used: automated exposure control, adjustment of mA and/or kV accordin g to patient size. COMPARISON: 04/26/2021 FINDINGS: Image quality: Excellent. ABDOMEN: Lung bases: Mild dependent atelectasis or scarring. Heart size is normal. Incidental note is made of body ornamentation artifact. Solid organs: Liver and spleen are normal in size and enhancement. G allbladder demonstrates vicarious excretion of contrast within its lumen Biliary system is non dilat ed. Pancreas enhances normally. The left adrenal gland has been removed. No right adrenal nodules. Kidneys demonstrate normal size and enhancement, without hydronephrosis. Peritoneum and bowel: A gastric tube is seen, with the tip within the mid stomach. No free air. Pos toperative changes are seen, within the colectomy and distal colonic anastomotic staple line, which i s attributed to an ileoanal anastomosis. Dilated loops of proximal small bowel are seen that measure up to 3.3 cm. The administered oral contrast is seen through the small bowel, including distal to the site of the previous obstruction. The distal small bowel loops are decompressed as they were previou sly. A small amount of intraperitoneal fluid can be seen. Nodes and vessels: No retroperitoneal or mesenteric adenopathy by size criteria. Stable borderline p rominent mesenteric lymph nodes can be seen. Aorta and inferior vena cava are normal in size. Miscellaneous: No ventral hernias. PELVIS: Genitourinary: Bladder wall thickness is normal. The uterus there is a likely hemorrhagic cyst agai n seen involving the left ovary. Miscellaneous: No inguinal hernias or adenopathy. Bones: No suspicious bony lesions. No vertebral body compression fractures. There is focal L5-S1 d egenerative change. IMPRESSION: Resolved small bowel obstruction. Postoperative changes, including an apparent ileoanal anastomotic staple line. A small amount of ascites is seen. Stable appearing hemorrhagic cyst of the left ovary. Incidental note is made of: Gastroesophageal junction postoperative change Prior left adrenal gland removal Stable borderline prominent mesenteric lymph nodes Focal L5-S1 degenerative change Reviewed by: Ceferino Capps MD on 04/27/2021 5:07 PM AKNOREEN Approved by: Ceferino Capps MD on 04/27/2021 5:07 PM [facility] Station ID: [id number]
[2021-04-28 05:08] LABS: BASOPHILS % (AUTO) 0.6 %; EOSINOPHILS # (AUTO) 0.2 10^3/uL (0.0-0.7); EOSINOPHILS % (AUTO) 5.4 %; HCT - HEMATOCRIT 29.8 % (37.0-47.0); HGB - HEMOGLOBIN 9.6 g/dL (12.0-16.0); LYMPHOCYTES # (AUTO) 0.8 10^3/uL (1.5-3.5); LYMPHOCYTES % (AUTO) 26.4 %; MEAN CORPUSCULAR HEMOGLOBIN 29.2 pg (27.0-31.0); MEAN CORPUSCULAR HGB CONC 32.2 g/dL (32.0-36.0); MEAN CORPUSCULAR VOLUME 90.6 fL (81.0-99.0); MEAN PLATELET VOLUME 8.7 fL (7.9-10.8); MONOCYTES # (AUTO) 0.5 10^3/uL (0.0-1.0); MONOCYTES % (AUTO) 14.3 %; NEUTROPHILS # (AUTO) 1.7 10^3/uL (1.5-6.6); NEUTROPHILS % (AUTO) 53.3 %; PLT - PLATELET COUNT 230 10^3/uL (130-450); RED BLOOD COUNT 3.29 10^6/uL (4.20-5.40); WHITE BLOOD COUNT 3.1 x10^3/uL (4.8-10.8)
[2021-04-28 05:30] LABS: ALBUMIN 3.3 g/dL (3.2-5.5); ALBUMIN/GLOBULIN RATIO 1.3 (1.0-2.2); BILIRUBIN,TOTAL 0.6 mg/dL (0.2-1.0); CALCIUM 8.4 mg/dL (8.5-10.3); CREATININE 0.6 mg/dL (0.4-1.0); PHOSPHORUS 2.2 mg/dL (2.5-4.6); TOTAL PROTEIN 5.8 g/dL (6.7-8.2)
[2021-04-28] MEDS: PANTOPRAZOLE 40 MG VIAL IVP SCH (06:05)
[2021-04-28] MEDS: METOCLOPRAMIDE 10 MG/2 ML VIAL IVP SCH ×2 (06:05→11:24)
[2021-04-28] MEDS: POTASSIUM CHLORIDE INJ 20 MEQ in DEXTROSE 5%-0.9% NACL 1,000 ML IV SCH (06:05)
[2021-04-28] MEDS: methocarbamoL 500 MG TABLET PO SCH ×2 (06:05→11:24)
[2021-04-28 07:50] VITALS: BP 132/91
[2021-04-28] MEDS: ENOXAPARIN 40 MG/0.4 ML SYRINGE SUBQ SCH (08:55)
[2021-04-28] MEDS: SODIUM CHLORIDE FLUSH 0.9% 10 ML SYRINGE IVP SCH (08:55)
--- NOTE | 2021-04-28 11:13 | PROVIDER PROGRESS NOTE ---
Progress Note Subjective Hospital day #2 noted for small bowel obstruction in setting of historic total proctocolectomy with restorative ileoanal J-pouch and recurrent small bowel obstruction. Last bowel obstruction nearly a decade ago necessitating laparotomy. Patient with positive bowel function status post CT abdomen pelvis with oral, intravenous, rectal contrast. Objective Afebrile hemodynamically acceptable General Appearance: positive: No acute distress Eyes Bilateral: positive: Normal inspection ENT: positive: ENT inspection nml Neck: positive: Nml inspection Respiratory: positive: Chest non-tender, No respiratory distress, Breath sounds nml. negative: Wheezes, Rales, Rhonchi Cardiovascular: positive: Regular rate & rhythm Abdomen: positive: No distention, Other. negative: Guarding, Rebound Extremities: positive: Non-tender, Full ROM, Nml appearance Neurologic/Psychiatric: positive: Oriented x3, CN's nml (2-12) Impression/Plan Hospital day #2 for small bowel obstruction. Resolved. Please see CAT scan below. We will advance diet. Patient needs referral to GI for upper and lower endoscopic surveillance especially for rectal cuff/rectal remnant. She is also in need to be evaluated for gastric polyp/polyposis for which the screening recommendations for EGD are at least as frequent as every 4 years. If tolerates diet may be free to go tomorrow. CT abdomen pelvis impression: 1. Resolved small bowel obstruction 2. Postoperative changes, including an apparent ileal anal anastomotic staple line. 3. A small amount of ascites is seen. 4. Stable appearing hemorrhagic cyst of the left ovary.
--- NOTE | 2021-04-28 11:14 | DISCHARGE SUMMARY ---
"Discharge Summary Admit Date: 04/26/21 Discharge Date: 04/28/21 Discharging Provider: Marcela Code Status: Attempt Resuscitation Condition at Discharge: Good Discharge Disposition: 01 Home, Self Care - DIAGNOSES Admission Diagnoses: 1. History of FAP 2. History of total proctocolectomy with restorative ileoanal J-pouch 3. Recurrent small bowel obstruction 4. Obstipation Discharge Diagnoses with Status of Each Condition: 1. History of FAP 2. History of total proctocolectomy with restorative ileoanal J-pouch 3. Recurrent small bowel obstruction - RESOLVED 4. Obstipation - RESOLVED - HPI History of Present Illness: 45-year-old female presenting for bowel obstruction. History of total abdominal colectomy for FAP. Patient underwent restorative ileal pouch anal anastomosis with proximal diverting loop ileostomy. Her operative intervention was performed open/laparotomy. Ultimately reports 5- 6 bowel movements daily since ileostomy takedown close near 2 decades ago. Patient has last have the rectal remnant evaluated in 2019 with no complication. Within the last decade patient had single episode of bowel obstruction requiring laparotomy. Patient other than acute presentation has had no change in bowel function, denies bleeding per rectum, and also denies reflux associated symptoms. Patient does not use tobacco. Patient has a history of alcohol use but denies any associated abuse. Respiratory/Bipap. No history of heart attack or stroke. Patient takes no systemic anticoagulation. Endoscopic history includes 2019 proctoscopy sigmoidoscopy. - CONSULTS | PROCEDURES Consultations: None Procedures: NONE - HOSPITAL COURSE Hospital Course: 45 with history of total abdominal colectomy/laparotomy with restorative ileoanal J-pouch and temporary diverting loop ileostomy, secondary to FAP. She ultimately had ileostomy takedown. Within the last decade had single episode of obstruction requiring laparotomy. Presents with moderate to high-grade small bowel obstruction with associated obstipation. No peritoneal signs at this time. Plan as follows: 1. bowel rest, nasogastric decompression, IV fluid resuscitation. 2. Serial abdominal exams, plain film imaging, possible repeat imaging with CT and contrast challenge. 3. May need operative intervention if fails conservative management. Will follow closely. 4. Electrolytes normal at this time we will continue to monitor them with daily lab draws. CT abdomen pelvis impression: 1. Small bowel obstruction with a transition point seen within the lower mid abdomen, just to the right of midline. 2. Trace distal ascites 3. Prior bowel surgery with colectomy and distal anastomosis. 4. Borderline prominent mesenteric lymph nodes. 5. 3.5 cm left ovarian hemorrhagic cyst. If clinically appropriate please consider short-term follow-up ultrasound in 6 weeks to ensure resolution improvement. Patient was placed for nasogastric tube for decompression and was bowel arrested with fluid resuscitation. On Hospital day #2 for small bowel obstruction with NGT decompression; Resolved. Please see CAT scan below. We will advance diet. Patient needs referral to GI for upper and lower endoscopic surveillance especially for rectal cuff/rectal remnant. She is also in need to be evaluated for gastric polyp/polyposis for which the screening recommendations for EGD are at least as frequent as every 4 years. If tolerates diet may be free to go tomorrow. CT abdomen pelvis impression: 1. Resolved small bowel obstruction 2. Postoperative changes, including an apparent ileal anal anastomotic staple line. 3. A small amount of ascites is seen. 4. Stable appearing hemorrhagic cyst of the left ovary. Patient was tolerating oral analgesia, p.o. nutrition with soft diet, voiding spontaneously, with positive resumption of bowel function. Afebrile hemodynamically acceptable. Electrolytes repleted throughout and blood counts as a relates to risks of anemia in the perioperative setting and leukocytosis as an inflammatory marker were all stable without any concerns. Discharge instructions given. - ALLERGIES Allergies/Adverse Reactions: Allergies Allergy/AdvReac Type Severity Reaction Status Date / Time No Known Drug Allergies Allergy Verified 03/03/17 09:22 - PHYSICAL EXAM AT DISCHARGE Physical Exam Other/Comments: General Appearance: positive: No acute distress Eyes Bilateral: positive: Normal inspection ENT: positive: ENT inspection nml Neck: positive: Nml inspection Respiratory: positive: Chest non-tender, No respiratory distress, Breath sounds nml. negative: Wheezes, Rales, Rhonchi Cardiovascular: positive: Regular rate & rhythm Abdomen: positive: No distention, Other. negative: Guarding, Rebound Extremities: positive: Non-tender, Full ROM, Nml appearance Neurologic/Psychiatric: positive: Oriented x3, CN's nml (2-12) Abdominal Exam: Inspection - Erythema none; Scars midline and historic ileostomy site scars well-healed Auscultation -normoactive bowel sounds Palpation - Hernias none; Fluctuance none; Induration none; Scar N/A - LABS Result Diagrams: 04/28/21 04:59 04/28/21 04:59 - DIAGNOSTIC IMAGING Diagnostic Imaging Results: Final report reviewed - SEPSIS Current Stage of Sepsis: Ruled out - FOLLOW UP Follow Up: See discharge plan - TIME SPENT Time Spent in Discharge (Minutes): 60"
--- NOTE | 2021-04-28 11:17 | Discharge Plan ---
Discharge Plan Problem Reviewed?: Yes Disposition: Home, Self Care Condition: Good Diet: Soft Activity Restrictions: No Restrictions Shower Restrictions: No Driving Restrictions: No Instruction Topics: Obstruction Sm Bowel Assessment: DISCHARGE INSTRUCTIONS TEMPLATE: No heavy lifting, pushing, or pulling. Stairs are allowed, no strenuou s/exertional activities. 5-10lbs weight carrying limit (i.e. gallon of milk) If provided, abdominal binder while out of bed and while ambulating. Call or proceed to clinic/ER for fevers, severe pain, nausea, vomiting, inability to pass flatus/stool, bleeding, wound redness/discharge, weakness, excessively loose stool/diarrhea, or for any other reasonably worrisome symptom or concern. Soft diet, no raw vegetables, avoid high fiber foods. Colace 100mg by mouth twice to three times daily while taking narcotic pain medication. If no bowel movement in 24-48hr, may take 17g Miralax in 8oz water twice daily until bowel movement. Follow up in clinic in 2-4 weeks. Follow up with primary care provider and/or medical subspecialist following discharge as well. Referral to gastroenterology for rectal culture surveillance and upper endoscopy given history of FAP. No Smoking: If you smoke, Please STOP! Call for help. Follow-up with: Windy Yi PA-C [Primary Care Provider] -
== END 2021-04-28 11:45 | disposition home or self-care (01) ==
LOC: ED 03:03 → MS2 09:57
PROVIDERS: ADMIT Surgery; ATTEND Surgery
DX: K56.609 Unspecified intestinal obstruction, unspecified as to partial versus complete obstruction (principal); Z90.49 Acquired absence of other specified parts of digestive tract; N83.202 Unspecified ovarian cyst, left side; Z87.891 Personal history of nicotine dependence; Z20.822 Contact with and (suspected) exposure to COVID-19
CPT/HCPCS: 0202U; 36415; 43753; 71045; 74177; 80053; 81003; 83690; 83735; 84100; 85025; 96365; 96366; 96367; 96368; 96375; 96376; 99284; 99285; A9270; G0378; J0131; J1170; J2765; J3480; Q9967; 81001; 87086